=== PATIENT | male | born 1995 | race African-American/Black ===

== ENCOUNTER 2016-08-25 09:18 | Emergency (ER) | payer SELFPAY | END 2016-08-25 11:00 | disposition left against medical advice (07) | LOC: UCCORT 09:18 | DX: Z53.21 Procedure and treatment not carried out due to patient leaving prior to being seen by health care provider (principal) ==

== ENCOUNTER 2016-08-26 14:12 | Emergency (ER) | payer SELFPAY ==
[2016-08-26 16:41] VITALS: BP 106/62
--- NOTE | 2016-08-26 16:48 | UC ---
HPI Febrile Illness - HPI Summary HPI Summary: cough for 3 days. Ran fever to 102 last night. Body aches, headache, sore throat. No flu shot. No rash. Poor appetite. - History of Current Complaint Chief Complaint: UCGeneralIllness Time Seen by Provider: 08/26/16 16:45 Hx Obtained From: Patient, Family/[employer] - Mom Timing: Constant Initial Severity: Mild Current Severity: Moderate Aggravating Factors: Nothing Alleviating Factors: Nothing Associated Signs and Symptoms: Chills, Cough, Headache, Myalgia, Sore Throat, Weakness - Risk Factors Pseudomonas Risk Factors: Negative Serious Bacterial Infection Risk Factors: Negative - Allergy/Home Medications Allergies/Adverse Reactions: Allergies Allergy/AdvReac Type Severity Reaction Status Date / Time Fluticasone [From Flonase] AdvReac "makes my Verified 08/26/16 16:42 symptoms worse" narcotics AdvReac See Comment Uncoded 08/26/16 16:42 PMH/Surg Hx/FS Hx/Imm Hx Previously Healthy: Yes - Immunization History Date of Influenza Vaccine: no flu shot Infectious Disease History: No Infectious Disease History: Reports: Hx Shingles Denies: Hx Clostridium Difficile, Hx Hepatitis, Hx Human Immunodeficiency Virus (HIV), Hx of Known/Suspected MRSA, Hx Tuberculosis, Hx Known/Suspected VRE , Hx Known/Suspected VRSA, History Other Infectious Disease - molescum contagioso, Traveled Outside the [place] in Last 30 Days - Family History Known Family History: Positive: Other - cancer Negative: Diabetes, Respiratory Disease Family History: cancer - Social History Occupation: Student Lives: With Family Alcohol Use: Occasionally Alcohol Amount: went through detox Substance Use Type: Reports: Marijuana Substance Use Comment - Amount & Last Used: went through detox Smoking Status (MU): Current Some Day Smoker Type: Cigarettes Amount Used/How Often: 1/4 ppd Length of Time of Smoking/Using Tobacco: 3 year Have You Smoked in the Last Year: Yes Review of Systems Constitutional: Negative Skin: Negative Eyes: Negative ENT: Sore Throat, Nasal Discharge Respiratory: Cough Cardiovascular: Negative Gastrointestinal: Negative Genitourinary: Negative Motor: Negative Neurovascular: Negative Musculoskeletal: Myalgia Neurological: Headache Psychological: Negative All Other Systems Reviewed And Are Negative: Yes Physical Exam Vital Signs: Initial Vital Signs Temp 100.9 F 08/26/16 16:38 Pulse 105 08/26/16 16:38 Resp 18 08/26/16 16:38 BP 106/62 08/26/16 16:38 Pulse Ox 97 08/26/16 16:38
[2016-08-26] MEDS ORDERED: Ibuprofen TAB* 600 MG PO ONE (16:53)
--- NOTE | 2016-08-26 17:09 | UC ---
Throat Pain/Nasal Manuel HPI - HPI Summary HPI Summary: cough for 3 days. Ran fever to 102 last night. Body aches, headache, sore throat. No flu shot. No rash. Poor appetite. - History of Current Complaint Chief Complaint: UCGeneralIllness Stated Complaint: FLU SXS Time Seen by Provider: 08/26/16 16:45 Hx Obtained From: Patient Onset/Duration: Sudden Onset, Lasting Days Severity: Severe Pain Intensity: 7 Pain Scale Used: 0-10 Numeric Cough: Sputum Appears Associated Signs & Symptoms: Positive: Dysphagia, Wheezing, Sinus Discomfort, Nasal Discharge, Fever, Vomiting - Epiglottits Risk Factors Epiglottis Risk Factors: Negative - Allergies/Home Medications Allergies/Adverse Reactions: Allergies Allergy/AdvReac Type Severity Reaction Status Date / Time Fluticasone [From Flonase] AdvReac "makes my Verified 08/26/16 16:42 symptoms worse" narcotics AdvReac See Comment Uncoded 08/26/16 16:42 PMH/Surg Hx/FS Hx/Imm Hx Previously Healthy: Yes - Surgical History Surgical History: None - Family History Known Family History: Positive: Other - cancer Negative: Diabetes Family History: cancer - Social History Alcohol Use: Occasionally Alcohol Amount: went through detox Substance Use Type: Marijuana Substance Use Comment - Amount & Last Used: went through detox Smoking Status (MU): Current Some Day Smoker Type: Cigarettes Amount Used/How Often: 1/4 ppd Length of Time of Smoking/Using Tobacco: 3 year Have You Smoked in the Last Year: Yes Household Exposure Type: Cigarettes - Immunization History Most Recent Influenza Vaccination: Not the Season Most Recent Tetanus Shot: 02/12/14 Most Recent Pneumonia Vaccination: utd Review of Systems Skin: Negative Eyes: Negative ENT: Sore Throat, Ear Ache, Nasal Discharge Respiratory: Shortness Of Breath, Cough Cardiovascular: Negative Gastrointestinal: Vomiting Genitourinary: Negative Motor: Negative Neurovascular: Negative Musculoskeletal: Negative Neurological: Headache Psychological: Negative All Other Systems Reviewed And Are Negative: Yes Physical Exam Triage Information Reviewed: Yes Appearance: Well-Nourished, Ill-Appearing, Pain Distress Vital Signs: Initial Vital Signs Temp 100.9 F 08/26/16 16:38 Pulse 105 08/26/16 16:38 Resp 18 08/26/16 16:38 BP 106/62 08/26/16 16:38 Pulse Ox 97 08/26/16 16:38 Vital Signs Reviewed: Yes Eye Exam: Normal Eyes: Positive: Conjunctiva Clear ENT Exam: Normal ENT: Positive: Pharyngeal erythema, Nasal congestion, Nasal drainage, TM red, Tonsillar swelling, Tonsillar exudate Dental Exam: Normal Neck exam: Normal Neck: Positive: Supple, Nontender, No Lymphadenopathy Respiratory Exam: Normal Respiratory: Positive: Chest non-tender, Lungs clear, Normal breath sounds Cardiovascular Exam: Normal Abdominal Exam: Normal Abdomen Description: Positive: Nontender, No Organomegaly, Soft Musculoskeletal Exam: Normal Musculoskeletal: Positive: Strength Intact, ROM Intact, No Edema, Other: Neurological Exam: Normal Neurological: Positive: Alert, Muscle Tone Normal Psychological Exam: Normal Skin Exam: Normal Throat Pain/Nasal Course/Dx - Course Course Of Treatment: hx obtained, exam performed, flu swab obtained and positive , ibuporfen given. with good results. medication prescribed. - Differential Dx/Diagnosis Differential Diagnosis/HQI/PQRI: Influenza, Laryngitis, Otitis Media, Pharyngitis, Tonsillitis, URI Provider Diagnoses: influenza a. SOB. WHEEZING Discharge - Discharge Plan Condition: Stable Disposition: HOME Patient Education Materials: Influenza (ED) Additional Instructions: Take the medication as prescribed. lots of REST and increase fluid intake. FOllow up with any worsening symptoms.
== END 2016-08-26 17:43 | disposition home or self-care (01) ==
LOC: UCCORT 14:12
DX: J09.X2 Influenza due to identified novel influenza A virus with other respiratory manifestations (principal); R06.02 Shortness of breath; F12.90 Cannabis use, unspecified, uncomplicated; F17.210 Nicotine dependence, cigarettes, uncomplicated; Z88.5 Allergy status to narcotic agent
CPT/HCPCS: 87502; 99212; A9270-GY; G0463

== ENCOUNTER 2017-08-15 08:48 | Emergency (ER) | payer OTHER ==
[2017-08-15 09:18] VITALS: BP 108/64
--- NOTE | 2017-08-15 09:32 | ED ---
Nausea/Vomiting/Diarrhea HPI - HPI Summary HPI Summary: Nausea vomiting and diarrhea starting yesterday. Today he can hold down fluids. No fever or blood. NO prior medical illness besides drug and alcohol abuse. - History of Current Complaint Chief Complaint: UCGeneralIllness Stated Complaint: FLU SYMPTOMS Time Seen by Provider: 08/15/17 09:16 Hx Obtained From: Patient Onset/Duration: Gradual Onset, Lasting Hours, Still Present Timing: Constant Severity Initially: Moderate Severity Currently: Mild Character: Not Applicable - No pain. Aggravating Factor(s): Food Alleviating Factor(s): Spontaneous Resolution Nausea/Vomiting Presence: Nauseated, Vomiting Diarrhea Presence: Yes - Allergies/Home Medications Allergies/Adverse Reactions: Allergies Allergy/AdvReac Type Severity Reaction Status Date / Time Fluticasone [From Flonase] AdvReac "makes my Verified 08/15/17 09:14 symptoms worse" narcotics AdvReac See Comment Uncoded 08/15/17 09:14 Home Medications: Home Medications Acetaminophen [Acetaminophen Extra Stren] 1,000 mg PO Q6H PRN 08/15/17 [History Confirmed 08/15/17] PMH/Surg Hx/FS Hx/Imm Hx Previously Healthy: No - smoker. prior drug and alcohol abuse. - Immunization History Date of Influenza Vaccine: no flu shot Infectious Disease History: Yes Infectious Disease History: Reports: Hx Shingles Denies: Hx Clostridium Difficile, Hx Hepatitis, Hx Human Immunodeficiency Virus (HIV), Hx of Known/Suspected MRSA, Hx Tuberculosis, Hx Known/Suspected VRE , Hx Known/Suspected VRSA, History Other Infectious Disease - molescum contagioso, Traveled Outside the [place] in Last 30 Days - Family History Known Family History: Positive: Other - cancer Negative: Diabetes, Respiratory Disease Family History: cancer - Social History Alcohol Use: Rare Alcohol Amount: went through detox Substance Use Type: Reports: Cocaine, Marijuana, Synthetic Drugs Substance Use Comment - Amount & Last Used: "Rarely" Smoking Status (MU): Heavy Every Day Tobacco Smoker Type: Cigarettes Amount Used/How Often: 1 PPD Length of Time of Smoking/Using Tobacco: Since Age 18 Have You Smoked in the Last Year: Yes Review of Systems Positive: Chills Positive: Vomiting, Diarrhea, Nausea All Other Systems Reviewed And Are Negative: Yes Physical Exam Triage Information Reviewed: Yes Vital Signs On Initial Exam: Initial Vitals Temp Pulse Resp BP Pulse Ox 99 F 92 16 108/64 100 08/15/17 09:11 08/15/17 09:11 08/15/17 09:11 08/15/17 09:11 08/15/17 09:11 Vital Signs Reviewed: Yes Appearance: Positive: Well-Appearing, No Pain Distress, Well-Nourished Skin: Positive: Warm Head/Face: Positive: Normal Head/Face Inspection Eyes: Positive: Normal, EOMI, JASON ENT: Positive: Pharynx normal, TMs normal. Negative: TM bulging, TM dull, TM red, Tonsillar swelling, Tonsillar exudate, Trismus Neck: Positive: Supple, Nontender, No Lymphadenopathy. Negative: Nuchal Rigidity Respiratory/Lung Sounds: Positive: Breath Sounds Present. Negative: Decreased Breath Sounds, Rales, Rhonchi Cardiovascular: Negative: IRR, Murmur, Leg Edema Left, Leg Edema Right Abdomen Description: Positive: No Organomegaly, Soft. Negative: Distended, Guarding Bowel Sounds: Positive: Present Musculoskeletal: Negative: Edema Left, Edema Right Neurological: Positive: Normal, Sensory/Motor Intact, Alert, Oriented to Person Place, Time Diagnostics - Vital Signs Vital Signs Temp Pulse Resp BP Pulse Ox 08/15/17 09:11 99 F 92 16 108/64 100 - Laboratory Lab Statement: Any lab studies that have been ordered have been reviewed, and results considered in the medical decision making process. Discharge - Discharge Plan Condition: Fair Disposition: HOME Prescriptions: Ondansetron ODT TAB* [Zofran 4 MG Odt TAB*] 4 mg PO Q8H PRN #12 tab.odt PRN Reason: Nausea Referrals: Ethan Riddle MD [Primary Care Provider] -
== END 2017-08-15 10:00 | disposition home or self-care (01) ==
LOC: UCCORT 08:48
DX: A08.4 Viral intestinal infection, unspecified (principal); Z88.5 Allergy status to narcotic agent; Z88.8 Allergy status to other drugs, medicaments and biological substances; F12.90 Cannabis use, unspecified, uncomplicated; F14.90 Cocaine use, unspecified, uncomplicated; F19.90 Other psychoactive substance use, unspecified, uncomplicated; F17.210 Nicotine dependence, cigarettes, uncomplicated
CPT/HCPCS: 87502; 99212; G0463

== ENCOUNTER 2019-01-07 16:29 | Emergency (ER) | payer SELFPAY ==
[2019-01-07 17:01] VITALS: BP 104/61
--- NOTE | 2019-01-07 17:21 | UC ---
Skin Complaint HPI - HPI Summary HPI Summary: Stepped on a nail yesterday. Came through his sneaker. Today more redness, swelling and pain. Tetanus UTD - History of Current Complaint Chief Complaint: UCSkin Time Seen by Provider: 01/07/19 16:57 Stated Complaint: LEFT FOOT PUNCTURE WOUND Hx Obtained From: Patient Onset/Duration: Sudden Onset, Lasting Days - 1, Worse Since - today Skin Exposure Onset/Duration: Days Ago - 1 Timing: Constant Onset Severity: Moderate Current Severity: Severe Pain Intensity: 8 Location: Foot (Left) - under the ball of the foot Character: Swelling, Pain, Redness Aggravating Factor(s): Touch - and walking Alleviating Factor(s): Nothing Associated Signs & Symptoms: Positive: Cough - smokers cough, Tenderness. Negative: Fever, Chills, Drainage, Red Streaks Related History: Trauma - nail puncture wound - Allergy/Home Medications Allergies/Adverse Reactions: Allergies Allergy/AdvReac Type Severity Reaction Status Date / Time fluticasone Allergy Unknown "makes my Verified 01/07/19 16:56 symptoms worse" narcotics AdvReac See Comment Uncoded 01/07/19 16:56 PMH/Surg Hx/FS Hx/Imm Hx Previously Healthy: Yes - Surgical History Surgical History: None - Family History Known Family History: Positive: Other - cancer Negative: Cardiac Disease, Hypertension, Diabetes, Respiratory Disease Family History: cancer - Social History Occupation: Unemployed Lives: Alone - with GF Alcohol Use: None Alcohol Amount: went through detox Substance Use Type: Marijuana Substance Use Comment - Amount & Last Used: "Rarely" Smoking Status (MU): Heavy Every Day Tobacco Smoker Type: Cigarettes Amount Used/How Often: 1/2 PPD Length of Time of Smoking/Using Tobacco: Since Age 18 Have You Smoked in the Last Year: Yes Household Exposure Type: Cigarettes - Immunization History Most Recent Influenza Vaccination: Not the 2017/2017 Season Most Recent Tetanus Shot: 2018 Most Recent Pneumonia Vaccination: utd Review of Systems All Other Systems Reviewed And Are Negative: Yes Skin: Positive: Other - redness and swelling left foot Is Patient Immunocompromised?: No Physical Exam Triage Information Reviewed: Yes Appearance: Well-Appearing, Well-Nourished, Pain Distress - mild Vital Signs: Initial Vital Signs Temp 98.6 F 01/07/19 16:57 Pulse 82 01/07/19 16:57 Resp 18 01/07/19 16:57 BP 104/61 01/07/19 16:57 Pulse Ox 98 01/07/19 16:57 Vital Signs Reviewed: Yes Eyes: Positive: Conjunctiva Clear Neck exam: Normal Respiratory Exam: Normal Cardiovascular Exam: Normal Musculoskeletal Exam: Normal Neurological Exam: Normal Psychological Exam: Normal Skin: Positive: Other - left plantar foot with puncture wound with redness, swelling and tenderness. Images Feet (Multiple View): 1 - Puncture wound 2 - swelling, redness and tenderness Course/Dx - Differential Diagnoses - Skin Complaint Differential Diagnoses: Abscess, Cellulitis, Lymphangitis - Diagnoses Provider Diagnosis: Puncture wound of left foot excluding toes with infection Discharge - Sign-Out/Discharge Documenting (check all that apply): Patient Departure All imaging exams completed and their final reports reviewed: No Studies - Discharge Plan Condition: Stable Disposition: HOME Prescriptions: Amoxicillin/Clavulanate TAB* [Augmentin TAB 875*] 875 mg PO BID #20 tab Loperamide CAP* [Imodium CAP*] 2 mg PO BID #20 cap Patient Education Materials: Puncture Wound (ED), Cellulitis (ED), Amoxicillin/ Clavulanate Potassium (By mouth) Referrals: Ethan Riddle MD [Primary Care Provider] - Additional Instructions: IF THE PAIN/ SWELLING/ REDNESS ARE NOT BETTER, OR IF YOU DEVELOP FEVERS/ SWEATS / CHILLS GO TO THE ER. - Billing Disposition and Condition Condition: STABLE Disposition: Home
== END 2019-01-07 17:40 | disposition home or self-care (01) ==
LOC: UCCORT 16:29
DX: S91.332A Puncture wound without foreign body, left foot, initial encounter (principal); L08.9 Local infection of the skin and subcutaneous tissue, unspecified; W22.8XXA Striking against or struck by other objects, initial encounter; Y93.01 Activity, walking, marching and hiking; Y92.9 Unspecified place or not applicable; Z88.5 Allergy status to narcotic agent; F17.210 Nicotine dependence, cigarettes, uncomplicated
CPT/HCPCS: 99212; G0463